=== PATIENT | male | born 1980 | race African-American/Black ===

== ENCOUNTER 2017-01-29 01:35 | Emergency (ER) | payer OTHER ==
[~2017-01-29] VITALS: Ht 182.9 cm; Wt 115.0 kg
[~2017-01-29 01:35] MED LIST: LOTR30T TOP; Z.0.NO CURRENT MEDS
[2017-01-29 01:45] VITALS: BP 136/93; PULSE 126; RESP 18; TEMP 98; O2SAT 97
[2017-01-29] MEDS ORDERED: SODIUM CHLOR 0.9% 1000 ML INJ 1,000 ML IV ONE (01:54)
[2017-01-29] MEDS ORDERED: SODIUM CHLORIDE 0.9% FLUSH 10 ML FLUSH IVF PRN (02:00)
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
[2017-01-29 02:46] LABS: AUTOMATED NEUTROPHIL # 5.3 TH/MM3 (1.8-7.7); BASOPHIL # 0.1 TH/MM3 (0-0.2); BASOPHIL % 0.8 % (0.0-2.0); EOSINOPHIL % 0.3 % (0.0-4.0); HEMATOCRIT 40.9 % (39.0-51.0); HEMO FLAGS DIFF FINAL; LYMPH % 23.4 % (9.0-44.0); LYMPHOCYTE # 1.8 TH/MM3 (1.0-4.8); MEAN CELL VOLUME 86.3 FL (80.0-100.0); MEAN CORPUSCULAR HEMOGLOBIN 30.8 PG (27.0-34.0); MEAN CORPUSCULAR HGB CONC 35.8 % (32.0-36.0); NEUT % 68.5 % (16.0-70.0); PLATELET COUNT 300 TH/MM3 (150-450); RED BLOOD COUNT 4.74 MIL/MM3 (4.50-5.90); RED CELL DISTRIBUTION WIDTH 13.5 % (11.6-17.2); WHITE BLOOD COUNT 7.7 TH/MM3 (4.0-11.0)
[2017-01-29 03:11] LABS: ANION GAP 6 MEQ/L (5-15); AST (GOT) 17 U/L (15-37); BICARBONATE 26.8 MEQ/L (21.0-32.0); BLOOD UREA NITROGEN 9 MG/DL (7-18); CHLORIDE 105 MEQ/L (98-107); GLOMERULAR FILTRATION RATE 93 ML/MIN (>89); POTASSIUM 3.8 MEQ/L (3.5-5.1); SODIUM (NA) 138 MEQ/L (136-145)
[2017-01-29 03:12] LABS: ALCOHOL 73 MG/DL (0-5)
[2017-01-29 03:15] LABS: ALKALINE PHOSPHATASE 91 U/L (45-117); ALT (GPT) 36 U/L (12-78); CREATINE KINASE 343 U/L (39-308); CREATINE KINASE 350 U/L (39-308); TOTAL BILIRUBIN ADULT 0.2 MG/DL (0.2-1.0)
[2017-01-29 03:31] LABS: CKMB 2.5 NG/ML (0.5-3.6)
[2017-01-29 03:36] VITALS: BP 160/85; PULSE 102; RESP 20; O2SAT 99
--- NOTE | 2017-01-29 13:18 | EKG ---
Date Performed: 01/29/2017 Time Performed: 02:25:51 PTAGE: 36 years EKG: SINUS TACHYCARDIA SEPTAL MYOCARDIAL INFARCTION ABNORMAL ECG NO PREVIOUS TRACING DOCTOR: Romario Greco Interpretating Date/Time 01/29/2017 13:17:13
== END 2017-01-29 10:25 ==
LOC: NEDAMB 01:35
DX: F19.10 Other psychoactive substance abuse, uncomplicated (principal); I10 Essential (primary) hypertension; R00.0 Tachycardia, unspecified; R06.02 Shortness of breath; R61 Generalized hyperhidrosis; R94.31 Abnormal electrocardiogram [ECG] [EKG]; F17.200 Nicotine dependence, unspecified, uncomplicated; Z02.89 Encounter for other administrative examinations; Z88.0 Allergy status to penicillin
CPT/HCPCS: 80053; 80307; 82550; 82552; 84484; 85025; 93005; 99284; J7030